=== PATIENT | female | born 1980 | race Asian ===

== ENCOUNTER → 2016-09-05 | Outpatient (CLI) | payer OTHER ==
--- NOTE | 2016-09-05 13:44 | US ---
September 05, [address] Sanchez, Thank you for requesting consultation and a follow up ultrasound for your patient, Mrs. Keiko steele. As you know, Luzma is a 36 year old G 2, P 1001 . Her due date is 11/17/16 by LMP. Her cu rrent gestational age based on this dating is is 29 weeks 4 days. 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 Her was delive red by section at 38 weeks. The baby weighed 5 lb 12 oz. ULTRASOUND Number of fetuses: 1 Placental location: Posterior presentation: Cephalic Heart Rate: 160 bpm Cervix: 3.8 cm viewed transabdominally Maximum Vertical Pocket: 7.5 cm Measurements: Biparietal diameter: 77 mm 30 weeks, 6 days Head circumference: 292 mm 32 weeks, 2 days Abdominal circumference: 247 mm 29 weeks, 0 days Femur length: 54 mm 28 weeks, 5 days Humerus length: 49 mm 28 weeks, 5 days Transcerebellar diameter: 38 mm 30 weeks, 6 days Average age by ultrasound: 30 weeks, 2 days Estimated weight: 1361 gm weight percentile: 26 % ANATOMY anatomy was previously assessed. Today the following structures were visualized and appeared n ormal: Profile, limited views of the heart, stomach, cerebellum, lateral ventricle, cavum septum pel lucidum, bilateral kidneys, and bladder. IMPRESSION: 1. Intrauterine at 29 weeks, 4 days; INDU of 11/17/16. 2. growth is appropriate size for dates. 3. anatomy was previously assessed and today's ultrasound continues to provide reassurance of normal appearing anatomy. 4. Normal amniotic fluid volume 5. Uterine didelphys 6. Prior section 7. History of SGA and oligohydramnios RECOMMENDATIONS: I was pleased to review today's ultrasound with your patient. I reassured her that growth is normal at the 26 %ile for this gestational age. The amniotic fluid volume is normal. We performed a review of the anatomy which was limited by gestational age and position, but no overt abnormali ties were noted. I recommend continued serial follow up of growth given her history and recommended that she return in 4 weeks. Thank you for allowing us the opportunity to evaluate your patient. Should you have any further ques tions or concerns please do not hesitate to contact me. Approximately 15 minutes were spent with the patient and 10 minutes were spent in face to face consu ltation. Jaimie Hernandez MD Color Paste Mixing Supervisor Maternal Medicine Diagnosis Department of Obstetrics & Gynecology [facility]
--- NOTE | 2016-09-05 17:36 | US ---
OB SONOGRAM History: 29 weeks 4 days, INDU November 17, 2016, follow-up growth, uterine didelphys, history of oligohyd ramnios and small for gestational age fetus in prior Comparison: July 28, 2016 Findings: The fetus is in the right uterine horn of a didelphys uterus. The fetus is in vertex presen tation with the head directly against the internal os. Cervix measures 3.8 cm transabdominally. Maxim um amniotic fluid pocket = 7.5 cm. The placenta is posterior without previa or prematurity. The visua lized intracranial contents look normal. The heart is 4 chambered and has a rate of 1 60 bpm. The right and left ventricular outflow tracks look and interventricular septum normal. The renal region looks normal. Fluid is identified in the urinary bladder. There is no ascites. BPD = 77 mm = 30 weeks 6 days Head circumference = 292 mm = 32 weeks 2 days Abdominal circumference = 247 mm = 29 weeks 0 days Femur length = 54 mm = 28 weeks 5 days Humeral length = 49 mm = 28 weeks 5 days Cerebellar width = 38 mm = 30 weeks 6 days Cisterna magna = 5.3 mm Estimated weight = 1361 +/- 199 g = 26 percentile Average gestational age by ultrasound = 30 weeks 2 days INDU by ultrasound November 12, 2016 Impression: Size consistent with dates. Amniotic fluid remains normal. This report should be read in conjunction with a consultation by Dr. Jaimie Hernandez.
== END ==
LOC: FIMAGING 12:38
PROVIDERS: ATTEND Obstetrics & Gynecology
DX: O09.523 Supervision of elderly multigravida, third trimester (principal); Z3A.29 29 weeks gestation of pregnancy; Q51.2 Other doubling of uterus; Z98.891 History of uterine scar from previous surgery

== ENCOUNTER → 2016-10-06 | Outpatient (CLI) | payer OTHER | LOC: FIMAGING 12:41 | PROVIDERS: ATTEND Obstetrics & Gynecology | DX: O09.523 Supervision of elderly multigravida, third trimester (principal); O34.593 Maternal care for other abnormalities of gravid uterus, third trimester; Z3A.34 34 weeks gestation of pregnancy; Z98.891 History of uterine scar from previous surgery ==

== ENCOUNTER → 2016-10-31 | Outpatient (CLI) | payer OTHER | LOC: FIMAGING 12:48 | PROVIDERS: ATTEND Obstetrics & Gynecology | DX: O09.523 Supervision of elderly multigravida, third trimester (principal); Q51.2 Other doubling of uterus; Z3A.37 37 weeks gestation of pregnancy ==

== ENCOUNTER 2016-11-23 10:14 | Inpatient (IN) | payer OTHER ==
[2016-11-23] MEDS ORDERED: CITRIC ACID/SODIUM CITRATE 30 ML UDCUP PO ONE (10:49)
[2016-11-23] MEDS ORDERED: LR 500 ML IV ONE (10:49)
[2016-11-23] MEDS ORDERED: LR 1,000 ML IV SCH (11:00)
[2016-11-23 11:15] LABS: ADD DIFF? YES; ADD MORPH? NO; ADD SCAN? NO; ATYPICAL LYMPHOCYTE FLAG 10 (0-99); FRAGMENT RBC FLAG 0 (0-99); HEMATOCRIT 39.3 % (38.0-47.0); HEMOGLOBIN 13.3 g/dL (12.6-16.3); LEFT SHIFT FLG 40 (0-99); LIPEMIA HEMOLYSIS FLAG 90 (0-99); MEAN CELL HEMOGLOBIN 32.4 pg (27.9-34.1); MEAN CELL HEMOGLOBIN CONCENTR. 33.8 g/dL (32.4-36.7); MEAN CELL VOLUME 95.9 fL (81.5-99.8); MEAN PLATELET VOLUME 10.9 fL (8.7-11.7); PLATELET CLUMPS FLAG 10 (0-99); PLATELET COUNT 181 10^3/uL (150-400); RED CELL DISTRIBUTION WIDTH 12.6 % (11.5-15.2)
[2016-11-23] MEDS ORDERED: ceFAZolin 2 GM/DEXTROSE 100 ML IV ONE (11:21)
[2016-11-23 11:48] LABS: PLATELET ESTIMATE ADEQUATE (ADEQ)
[2016-11-23] MEDS ORDERED: MISOPROSTOL 200 MCG TAB ONE (11:56)
[2016-11-23] MEDS ORDERED: OXYCODONE/APAP 5/325 TAB PO PRN (12:48)
[2016-11-23] MEDS ORDERED: SIMETHICONE 80 MG TAB CHEW PO PRN (12:48)
[2016-11-23] MEDS ORDERED: ACETAMINOPHEN 325 MG TAB PO PRN (12:48)
[2016-11-23] MEDS ORDERED: HYDROCODONE/APAP 5/325 TAB PO PRN (12:48)
[2016-11-23] MEDS ORDERED: morphINE PF 5 MG/10 ML INJ ONE (12:50)
[2016-11-23] MEDS ORDERED: fentaNYL 100 MCG/2 ML INJ ONE (12:52)
[2016-11-23] MEDS ORDERED: PHENYLEPHRINE HCL 100 MCG/ML SYR ONE ×2 (13:39)
[2016-11-23] MEDS ORDERED: OXYTOCIN 100 UNITS/10 ML VIAL ONE (13:39)
[2016-11-23] MEDS ORDERED: ONDANSETRON 4 MG/2 ML VIAL ONE (13:39)
[2016-11-23] MEDS ORDERED: DEXAMETHASONE 4 MG/ML VIAL ONE (13:40)
[2016-11-23] MEDS ORDERED: PHENYLEPHRINE HCL 100 MCG/ML SYR IVP PRN (15:33)
[2016-11-23] MEDS ORDERED: ONDANSETRON 4 MG/2 ML VIAL IVP PRN (15:33)
[2016-11-23] MEDS ORDERED: NALOXONE HCL 0.4 MG/ML INJ IVP PRN (15:33)
--- NOTE | 2016-11-23 15:39 | PREANESOB ---
Obstetric Pre-Anesthesia Info - General Info Proposed Procedure: Repeat C Section : 2 Para: 1 WBD: 39 - Info Status: Full Term Monitors: External FHR Baseline (bpm): 140 FHR Pattern: Reassuring - Labor Status Section History: Repeat Indications for Current Section: Elective/Repeat (Double uterus.) Labor Epidural: No Anesthesia ROS: Prior C Section with spinal. Allergies/Adverse Reactions: Allergy/AdvReac Type Severity Reaction Status Date / Time No Known Allergies Allergy Unverified 04/09/15 11:56 Home Medications: Medication Instructions Recorded Vit27&Calcium/Iron/FA 1 tab PO DAILY 04/09/15 [] Hydrocodone/APAP 5/325 [[place] 1 - 2 tab PO Q4 PRN #30 tab 04/24/15 5/325 (*)] Ibuprofen [Motrin (*)] 600 mg PO Q6 PRN #30 tab 04/24/15 Visit Medications: Generic Name Dose Route Start Last Admin Trade Name Freq PRN Reason Stop Dose Admin Acetaminophen 325 - 650 mg 11/23/16 12:48 Tylenol PO 05/22/17 12:47 Q3HRS PRN Pain, Mild Hydrocodone Bitart/Acetaminophen 1 - 2 tab 11/23/16 12:48 [place] 5/325 PO 12/03/16 12:47 Q4HRS PRN Pain, Moderate Diphenhydramine HCl 25 - 50 mg 11/23/16 15:33 Benadryl Injection IVP 05/22/17 15:32 Q6HRS PRN Itching Docusate Sodium 100 mg 11/23/16 12:48 Colace PO 05/22/17 12:47 BID PRN Constipation Lactated Ringer's 1,000 mls @ 125 mls/hr 11/23/16 11:00 11/23/16 11:12 Lr IV 05/22/17 10:59 1,000 mls CONT CHAN Administration Ibuprofen 600 mg 11/23/16 12:48 Motrin PO 05/22/17 12:47 Q6HRS PRN Inflammation Ketorolac Tromethamine 30 mg 11/23/16 18:00 Toradol IVP 11/24/16 12:01 Q6HRS CHAN Naloxone HCl 0.4 mg 11/23/16 15:33 Narcan IVP 11/24/16 15:35 PRN PRN respiratory depression Ondansetron HCl 4 mg 11/23/16 15:33 Zofran IVP 05/22/17 15:32 Q4HRS PRN Nausea/Vomiting, Can't Take PO Oxycodone/Acetaminophen 1 - 2 tab 11/23/16 12:48 Percocet 5/325 PO 12/03/16 12:47 Q4HRS PRN Pain, Severe Able to Take PO Simethicone 80 mg 11/23/16 12:48 Mylicon PO 05/22/17 12:47 .TIDMEALS AND HS PRN Gas Discontinued Medications Generic Name Dose Route Start Last Admin Trade Name Freq PRN Reason Stop Dose Admin Citric Acid/Sodium Citrate 30 ml 11/23/16 10:49 11/23/16 12:14 Bicitra PO 11/23/16 10:50 Not Given ONCALL ONE Dexamethasone Confirm 11/23/16 13:40 Decadron Injection Administered 11/23/16 13:41 Dose 8 mg .ROUTE .STK-MED ONE Fentanyl Confirm 11/23/16 12:52 Sublimaze Administered 11/23/16 12:53 Dose 100 mcg .ROUTE .STK-MED ONE Lactated Ringer's 500 mls @ 0 mls/hr 11/23/16 10:49 Lr IV 11/23/16 10:50 ONCE ONE As Directed Cefazolin Sodium/Dextrose 100 mls @ 200 mls/hr 11/23/16 11:21 11/23/16 12:16 Ancef 2 Gm (Premix) IV 11/23/16 11:50 100 mls ONCALL ONE Administration Protocol Misoprostol Confirm 11/23/16 11:56 Cytotec Administered 11/23/16 11:57 Dose 1,000 mcg .ROUTE .STK-MED ONE Morphine Sulfate Confirm 11/23/16 12:50 Morphine Pf 5 Mg/10 Ml Administered 11/23/16 12:51 Dose 5 mg .ROUTE .STK-MED ONE Ondansetron HCl Confirm 11/23/16 13:39 Zofran Administered 11/23/16 13:40 Dose 8 mg .ROUTE .STK-MED ONE Oxytocin Confirm 11/23/16 13:39 Pitocin Administered 11/23/16 13:40 Dose 100 units .ROUTE .STK-MED ONE Phenylephrine HCl Confirm 11/23/16 13:39 [place]-Synephrine Administered 11/23/16 13:40 Dose 1,000 mcg .ROUTE .STK-MED ONE Phenylephrine HCl Confirm 11/23/16 13:39 [place]-Synephrine Administered 11/23/16 13:40 Dose 1,000 mcg .ROUTE .STK-MED ONE - Anesthesia History Response to Local Anesthetics: Normal Anesthesia & Operative History: No Prior Problems Family Anesthesia History: Negative - Social History Substance Use/Abuse: Denies - Focused Exam Blood Pressure: 121/82 Heart Rate: 75 Respiratory Rate: 20 Height/Weight (Nursing): Height 165.1 cm Weight 61.235 kg Physical Exam: Within normal limits. ASA Status: II Labs: 11/23/16 11:03 Patient ABO/Rh B POSITIVE 11/23/16 11:03 - Plan Anesthetic Plan: SAB Consent Signed and on Chart: Yes Patient/Guardian Understands and Agrees to Plan: Yes
--- NOTE | 2016-11-23 15:44 | POSTANESTH ---
Post Anesthetic Evaluation Cardiovascular Status: Normal, Stable Respiratory Status: Normal, Stable, Similar to Pre-op Cond. Level of Consciousness/Mental Status: Can Participate in Eval, Alert and Oriented Pain Control: Adequate, Prn Tx Ordered Nausea/Vomiting Control: Adequate, Prn Tx Ordered Complications Possibly Related to Anesthesia: None Noted (Tolerated spinal well , BP treated, comfortable for surgery, to PACU, no pain or nausea.)
--- NOTE | 2016-11-23 16:08 | OBPROC ---
- Delivery Pre-op Diagnoses: Repeat C/S Post-op Diagnoses: Repeat C/S Procedure: Repeat Surgeon: Luzma Sanchez Therapeutic Recreation Leader: Azul Reese Anesthesiologist: Johnny Sanchez Bowling Ball Engraver/CYLINDER PRESS FEEDER: Morenita Busby Anesthesia: Spinal Complications: Nucal Cord IV Fluid (ml): 2,500 EBL: 800 - [place] Info Infant A Delivery Date: 11/23/16 Delivery Time: 13:28 Sex of Infant: Male Score (1 Min): 8 Score (5 Min): 8
--- NOTE | 2016-11-23 19:33 | GOP ---
[f rep st] OPERATIVE REPORT DATE OF OPERATION: 11/23/2016 SURGEON: Luzma Sanchez MD INFORMATICS EDUCATOR: Azul Fang C.N.M. ANESTHESIA: Spinal. PREOPERATIVE DIAGNOSIS: 1. History of prior delivery. 2. Bicornuate uterus. POSTOPERATIVE DIAGNOSIS: 1. History of prior delivery. 2. Bicornuate uterus. PROCEDURE PERFORMED: Repeat low transverse section. FINDINGS: 1. Delivered a male infant, weighing 2774 g(?), with Apgars of 8 and 9. 2. Uterine anatomy was clear at the time of delivery, that the was in the right horn of the bicornuate uterus and the left horn was visualized separately. It was clear that there was scar tissue on the anterior aspect of the left side of the uterus consistent with her being in the left side of the uterus in the past. 3. The baby was delivered in the vertex presentation with a triple nuchal cord noted, which was reduced during delivery. 4. Of note, immediately after delivery of the baby, I was unable to pass the ring forceps through the cervix during the surgery. A detailed pelvic and speculum exam was performed after delivery to be clear how many cervices were present and to assure that the blood would have a clear opening from which to drain . A speculum exam was performed. Only 1 cervix was visualized. A second vaginal cavity was noted anteriorly and no cervix was visualized in this canal. The exterior aspect of the cervix was dilated to a fingertip's width, but my finger could not reach the lower aspect of the uterine cavity. 5. Intraoperatively, there was a normal-appearing ovary and tube on the right side of the right horn of the uterus, and the left tube and ovary were noted to be normal on the left horn of the uterus. SPECIMENS: None. ESTIMATED BLOOD LOSS: 800 cc. INDICATIONS: The patient is a 36-year-old 2, para 1 female at 40 weeks and 6 days estimated gestational age, with a history of a bicornuate uterus and a prior delivery. It was thought that her prior delivery was in the left horn of her bicornuate uterus. However, it was not definitively clear. She desired to proceed with a repeat postdates. We discussed the options for delivery timing and she desired to proceed with delivery today. DESCRIPTION OF PROCEDURE: The patient was taken to the operating room where spinal anesthesia was found be adequate. The patient was prepared and draped in normal sterile fashion in the dorsal supine position with a left tilt. After confirmation of adequate anesthesia and administration of IV antibiotics, a low transverse skin incision was made excising the prior scar. The incision was carried down to the level of the fascia using the scalpel and Bovie for hemostasis. The fascia was incised in the midline and extended laterally bilaterally with the Pyle scissors. The rectus muscles were dissected off the fascia superiorly and inferiorly, and there was a small bit of omentum that had come through into the space. That was dissected away at this time. The peritoneal cavity was entered during this dissection, and then the incision was extended superiorly and inferiorly in layers. A bladder blade was placed. An incision was made in the vesicouterine perineum and extended laterally bilaterally with Pyle scissors. The bladder was dissected off the lower uterine segment. A low transverse uterine incision was made and extended laterally digitally. The baby was then delivered atraumatically in the vertex presentation. The baby's head was delivered and a triple nuchal cord was noted , which was reduced easily. Then the baby was delivered atraumatically with a spontaneous cry noted. The cord was doubly clamped and cut, and the baby was bulb suctioned. The baby was handed off to the awaiting nurse practitioner. Cord blood was obtained. The placenta was delivered with uterine massage. The uterus was then wiped with a dry lap sponge to remove all residual membranes after exteriorizing it on the maternal abdomen. The uterine incision was then closed with a running, locked stitch of 0 Monocryl. A second layer was then placed for imbrication of the incision. One additional [id number] stitch was placed for hemostasis. The incision was then hemostatic. At this time, it was clear that this was the right uterine horn and there was a completely separate left uterine horn that was not involved with this . The uterine tone was excellent after administration of IV Pitocin. The posterior cul-de-sac was irrigated with copious amounts of normal saline and noted to be clear. The uterus was placed back in the maternal abdomen. The gutters were wiped with moist lap sponges bilaterally. The uterine incision was reexamined closely and hemostasis was obtained with the use of the Bovie. The rectus muscle surfaces and fascial surfaces were examined closely and hemostasis was obtained with the use of the Bovie. The [place] clamps were used to grasp the rectus muscles, and the rectus muscles were reapproximated with a [id number]-rypts stitch of 0 chromic. The fascia was then closed with a running, nonlocked stitch of #1 PDS. The subcutaneous tissue was irrigated with copious amounts of normal saline and hemostasis was assured. The subcutaneous tissue was reapproximated with interrupted stitches of 2-0 Vicryl. The skin was closed with a subcuticular stitch of 4-0 Monocryl. Steri-Strips and a bandage dressing was placed. A vaginal coude exam was performed and no bleeding was noted. An extensive exam was performed with findings as noted above. The patient was then transferred to the PACU in stable and good condition. COMPLICATIONS: None. DRAINS: [place] to gravity. FLUIDS REPLACED: 2500 mL. URINE OUTPUT: 500 mL. /[id number]/MODL MTDD
[2016-11-23] MEDS: KETOROLAC 30 MG/1 ML SDV IVP SCH (19:51)
[2016-11-24] MEDS: KETOROLAC 30 MG/1 ML SDV IVP SCH ×3 (02:14→14:59)
--- NOTE | 2016-11-24 13:41 | SOAPPROG ---
SOAP Progress Note Assessment/Plan: Assessment: POD#2 s/p rLTCS at term Recovering well VSS, Hct appropriate Rh pos, rub immune Plan: Routine postop care D/C pineda ambulation po pain meds Plan home POD#2 11/24/16 13:40 Subjective: No heavy bleeding. Tolerating regular diet. Pain controlled with toradol. Has walked around, would like pineda out. BF going well. would like to go home tomorrow if possible Objective: Vital Signs Temp Pulse Resp BP Pulse Ox 36.8 C 81 16 91/51 L 95 11/24/16 09:00 11/24/16 11:30 11/24/16 11:30 11/24/16 09:00 11/24/16 11:30 Laboratory Results 11/24/16 04:45 11/23/16 11/24/16 11/25/16 05:59 05:59 05:59 Intake Total 25 Output Total 2700 900 Balance -9741 -900 Gen: alert, awake, NAD Resp: unlabored CV: Reg rate Abd: minimal distention, soft, minimally tender Incision: bandage clean/dry Ext: no edema ICD10 Worksheet Patient Problems: Problems Problem Status Onset delivery delivered Acute Oligohydramnios Acute
[2016-11-24] MEDS ORDERED: KETOROLAC 30 MG/1 ML SDV IVP ONE (15:00)
[2016-11-24] MEDS: IBUPROFEN 600 MG TAB PO PRN (21:03)
[2016-11-24] MEDS: DOCUSATE SODIUM 100 MG CAP PO PRN (21:03)
[2016-11-25] MEDS: IBUPROFEN 600 MG TAB PO PRN ×2 (02:28→08:22)
--- NOTE | 2016-11-25 08:20 | OBGCSDC ---
General Delivery Information - General Info : 2 Para: 2 Delivery Date: 11/25/16 Delivery Time: 13:28 Delivery Physician/CNM: Luzma Sanchez Brine Supervisor: Azul Reese Admission Date: 11/23/16 Labs: Patient ABO/Rh B POSITIVE 11/23/16 11:03 Hct 34.4 % (38.0-47.0) L 11/24/16 04:45 - [place] Info A Sex of Infant: Male Score (1 Min): 8 Score (5 Min): 8 - Delivery IUP (Weeks): 37 Number of Prior Sections: 1 Indications for Prior Section: Breech Indications for Current Section: Elective/Repeat (bicorniate uterus), Other (Specify) Procedures: LTCS Intra-op Complications: Nucal Cord EBL: 800 Anesthesia: Spinal Discharge Information - Discharge Information Discharge Medications: Ibuprofen, Vitamins, Vicodin Condition: Good Instruction/Follow Up: Two Weeks, Six Weeks Discharge Physician/CNM: Azul Reese Discharge Date: 11/25/16 Dictated: No
[2016-11-25] MEDS: DOCUSATE SODIUM 100 MG CAP PO PRN (08:22)
[2016-11-25 10:22] VITALS: BP 95/67; PULSE 90; RESP 16; TEMP 97.9; O2SAT 96
== END 2016-11-25 10:15 | disposition home or self-care (01) | DRG 766 ==
LOC: FLD 10:14 → FOB 17:41
PROVIDERS: ADMIT Obstetrics & Gynecology; ATTEND Obstetrics & Gynecology
PROC: 10D00Z1 Extraction of Products of Conception, Low, Open Approach (ICD-10-PCS; principal; 2016-11-23)
DX: O69.81X0 Labor and delivery complicated by cord around neck, without compression, not applicable or unspecified (principal); O34.211 Maternal care for low transverse scar from previous cesarean delivery; O34.03 Maternal care for unspecified congenital malformation of uterus, third trimester; Z3A.39 39 weeks gestation of pregnancy; Z37.0 Single live birth
CPT/HCPCS: J0690; J1100; J1885; J2274; J2370; J2405; J2590; J3010